=== PATIENT | female | born 1935 | race Caucasian/White ===

== ENCOUNTER → 2016-12-16 | Outpatient (CLI) | payer OTHER ==
--- NOTE | 2016-12-16 15:33 | CARD ---
APPROVED REPORT EXAM: Two-dimensional and M-mode echocardiogram with Doppler and color Doppler. Other Information Quality : Good INDICATION Murmur 2D DIMENSIONS RVDd3.1 (2.9-3.5cm)Left Atrium(2D)4.2 (1.6-4.0cm) IVSd1.0 (0.7-1.1cm)Aortic Root(2D)2.6 (2.0-3.7cm) LVDd5.1 (3.9-5.9cm)LVOT Diameter2.1 (1.8-2.4cm) PWd1.0 (0.7-1.1cm)LVDs3.1 (2.5-4.0cm) FS (%) 30.0 %SV82.9 ml LVEF(%)60.0 (>50%) Aortic Valve AoV Peak Jayson.121.6cm/sAoV VTI30.2cm AO Peak GR.5.9mmHgLVOT Peak Jayson.86.8cm/s LVOT VTI 20.01cmAO Mean GR.4mmHg PAULO (VMAX)2.39xf9ZBQ (VTI)2.37cm2 Mitral Valve MV E Lrmusban92.0cm/sMV DECEL [id number] MV A Djtewwpl40.5cm/sMV [id number] E/A Ratio0.8MVA (PHT)2.62cm2 TDI E/Lateral E'14.4E/Medial E'9.9 Tricuspid Valve TR P. Osbrvknc6kt/sRAP [id number] TR Peak Gr.80whJoSURL03ecRg Pulmonary Vein S1 Velocity0.4cm/sD2 Uiphvwma28.2cm/s PVa [id number] LEFT VENTRICLE The left ventricle is normal size. There is normal left ventricular wall thickness. The left ventricu lar systolic function is normal and the ejection fraction is within normal range. The Ejection Fracti on is 60%. There is normal LV segmental wall motion. Transmitral Doppler flow pattern is Grade I-abno rmal relaxation pattern. RIGHT VENTRICLE The right ventricle is normal size. The right ventricular systolic function is normal. ATRIA The left atrium is dilated. The right atrium size is mildly dilated The interatrial septum is intact with no evidence for an atrial septal defect or patent foramen ovale as noted on 2-D or Doppler imagi ng. AORTIC VALVE The aortic valve is calcified but opens well. Doppler and Color Flow revealed trace aortic regurgitat ion. There is no significant aortic valvular stenosis. MITRAL VALVE The mitral valve is calcified but opens well. Mitral annular calcification is moderate. There is no e vidence of mitral valve prolapse. There is no mitral valve stenosis. Doppler and Color-flow revealed mild to moderate mitral regurgitation. TRICUSPID VALVE The tricuspid valve is normal in structure Doppler and Color Flow revealed mild tricuspid regurgitati on. There is mild pulmonary hypertension. The PA pressure was estimated at 39 mmHg. There is no tricu spid valve stenosis. PULMONIC VALVE The pulmonary valve is normal in structure Doppler and Color Flow revealed trace pulmonic valvular re gurgitation. There is no pulmonic valvular stenosis. GREAT VESSELS The aortic root is normal in size. The ascending aorta is normal in size. The IVC is normal in size a nd collapses >50% with inspiration. PERICARDIAL EFFUSION There is no evidence of significant pericardial effusion. Critical Notification Critical Value: No <Conclusion> The left ventricular systolic function is normal and the ejection fraction is within normal range. The Ejection Fraction is 60%. Transmitral Doppler flow pattern is Grade I-abnormal relaxation pattern. The left atrium is dilated. The right atrium size is mildly dilated Doppler and Color Flow revealed trace aortic regurgitation. The aortic valve is calcified but opens well. Doppler and Color-flow revealed mild to moderate mitral regurgitation. The mitral valve is calcified but opens well. Mitral annular calcification is moderate. Doppler and Color Flow revealed mild tricuspid regurgitation. There is mild pulmonary hypertension. The PA pressure was estimated at 39 mmHg. Doppler and Color Flow revealed trace pulmonic valvular regurgitation. There is no evidence of significant pericardial effusion.
== END | disposition home or self-care (01) ==
LOC: CARD 08:36
PROVIDERS: ATTEND Internal Medicine Cardiovascular Disease
DX: I08.1 Rheumatic disorders of both mitral and tricuspid valves (principal); I27.2 Other secondary pulmonary hypertension; R53.83 Other fatigue; R00.2 Palpitations
CPT/HCPCS: 93306

== ENCOUNTER → 2017-08-02 | Outpatient (CLI) | payer OTHER | END | disposition home or self-care (01) | LOC: MAMMO 08:00 | DX: Z12.31 Encounter for screening mammogram for malignant neoplasm of breast (principal) | CPT/HCPCS: 77063; 77067 ==

== ENCOUNTER → 2017-08-02 | Outpatient (CLI) | payer OTHER ==
[2017-08-02 10:26] LABS: CREATININE 1.6 mg/dL (0.6-1.0)
== END | disposition home or self-care (01) ==
LOC: MRI 08:50
DX: H47.10 Unspecified papilledema (principal); G93.2 Benign intracranial hypertension; Z86.73 Personal history of transient ischemic attack (TIA), and cerebral infarction without residual deficits
CPT/HCPCS: 36415; 70540; 70551; 82565

== ENCOUNTER → 2017-09-07 | Outpatient (CLI) | payer OTHER ==
[~2017-09-07] MED LIST: LIDOCAINE WITH 8.4% SOD BICARB 3 ML DISP.SYRIN.; LIDOCAINE WITH 8.4% SOD BICARB 3 ML DISP.SYRIN. INJ
[2017-09-07 09:35] LABS: CSF GLUCOSE 67 mg/dL (37-70)
[2017-09-07 09:35] LABS: CSF PROTEIN 45.1 mg/dL (15.0-45.0)
[2017-09-07 10:00] LABS: CSF CLARITY CLEAR; CSF COLOR COLORLESS; CSF RBC COUNT 8; CSF WBC COUNT 2
== END | disposition home or self-care (01) ==
LOC: RAD 07:44
DX: H47.10 Unspecified papilledema (principal); Z88.0 Allergy status to penicillin; Z79.899 Other long term (current) drug therapy
CPT/HCPCS: 36415; 62270; 77003; 82945; 84157; 87205; 89051

== ENCOUNTER → 2018-10-30 | Outpatient (CLI) | payer OTHER ==
[2017-09-07 11:40] VITALS: BP 141/67
--- NOTE | 2018-10-30 15:03 | KCIC ---
Bilateral digital screening mammograms with 3-D tomosynthesis: Reason for examination: Routine screening. Comparison is made to previous studies dated 08/02/2017 and 06/08/2016. Bilateral mammograms in CC and oblique projections were obtained with 2-D imaging and 3-D tomosynthesis imaging on a Siemens Inspiration unit and reviewed on the workstation. Interpretation was made with the benefit of CAD. The skin and nipples show no abnormalities. No abnormal axillary lymph nodes are seen. The breast parenchyma is predominantly fatty. (Breast density: Category A.) There are no dominant masses, suspicious calcifications or architectural distortion. Benign calcifications are present. Impression: No evidence of malignancy. Recommend routine screening. BI-RAD Category 2: Benign. "Our facility is accredited by the [employer] Mammography Program." This patient's information has been entered into a reminder system for the patient to be notified with the results of her examination and a target date for the next mammogram. Electronically signed by: Julia Louis MD (10/30/2018 3:00 PM) [id number]
--- NOTE | 2018-10-30 15:43 | KCIC ---
EXAM: Left lower extremity venous Doppler sonogram. HISTORY: Swelling and pain. Prior DVT. TECHNIQUE: Doll scale and color Doppler sonographic evaluation of the left lower extremity veins with spectral waveform analysis was performed. FINDINGS: There is normal color flow, normal compressibility and there are normal spectral waveforms in the common femoral, superficial femoral, popliteal, posterior tibial and greater saphenous veins. IMPRESSION: No Doppler evidence of lower extremity deep venous thrombosis. Electronically signed by: Shabnam Velez MD (10/30/2018 3:40 PM) [place] [id number]
== END | disposition home or self-care (01) ==
LOC: KCIC MAMMO 14:04
PROVIDERS: ATTEND Nurse Practitioner Family
DX: Z12.31 Encounter for screening mammogram for malignant neoplasm of breast (principal); M79.89 Other specified soft tissue disorders; N64.89 Other specified disorders of breast
CPT/HCPCS: 77063; 77067; 93971